=== PATIENT | male | born 1950 | race Caucasian/White ===

== ENCOUNTER 2023-10-28 12:40 | Outpatient (AMB) | payer BC, SELFPAY ==
--- NOTE | 2023-10-28 12:45 | HO.SPINEOV ---
Intake Visit Reasons: cervicalgia Intake Note: Nr. Sanchez is here today c/o neck pain. Quality Lab Technician Required: No Assessment & Plan Assessment & Plan (1) Cervicalgia: Code(s): M54.2 - Cervicalgia Category: Medical Plan Dear colleague Thank you for referring Papi Sanchez to the office today with a chief complaint of neck pain. HPI: This 72-year-old male is complaining of a pain on the left side of his neck going down his spine with an inability to turn his neck to the left side. He denies radiating pain down the arms. He denies numbness or weakness. He is tried all forms of injections including facet blocks without success. A possible cause for the pain is the parachute jump during which he felt a crack in his neck. He saw a neurosurgeon who could not offer any intervention. He recently started chiropractic therapy which seems to improve his mobility. He is coming in for 2nd opinion. PMH: Hypertension, type 2 diabetes, right knee replaced Medications: Metformin glipizide labetalol lisinopril atorvastatin, meloxicam, pregabalin, oxycodone Allergies: None Social history: . [place] Physical Exam: Pleasant male. Neck rotation towards the left side is limited. The remainder of the movements are intact. No neurological deficits. 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 Conservative treatments were not successful with the exception of chiropractic therapy. We decided to see how for the chiropractic treatment is going to bring him. He may call the office to schedule a CT of the cervical spine to assess auto fusion in the cervical region that can explain his limited mobility. Thank you for allowing me to participate in your patients care. total time spent was 45 minutes in counseling ,coordination of plan, personal review of imaging, surgical decision making and subsequent plan Angel Luis Aguilera MD, PhD [facility] Trained Neurosurgeon Director, [facility] Coding Level of Care Code New Pt Level 4 (02828) Diagnoses Cervicalgia M54.2
== END 2023-10-28 13:13 | disposition home or self-care (01) ==
PROVIDERS: PCP Internal Medicine; Referring Provider Internal Medicine; Visit Provider Neurological Surgery
DX: M54.2 Cervicalgia (principal)
CPT/HCPCS: 99204

== ENCOUNTER → 2023-10-28 12:40 | Outpatient (BNVA) | payer BC, SELFPAY | PROVIDERS: PCP Internal Medicine; Visit Provider Neurological Surgery ==